=== PATIENT | female | born 1990 | race Caucasian/White ===

== ENCOUNTER → 2019-02-24 | Outpatient (CLI) | payer BC ==
[~2019-02-24] MED LIST: ACHYD1T PO; EPIN0.3P2 IM; IBP800T PO; METH4TAB PO; PREN-115 PO
--- NOTE | 2019-02-24 20:53 | Diagnostic Imaging Report ---
FOOT LEFT, THREE VIEWS INDICATION: Left foot pain after crush injury. COMPARISON: None available. TECHNIQUE: Three non-weightbearing views of foot were obtained. FINDINGS: Question nondisplaced fracture in the tuft of the first distal phalanx. However, this could represent prominent trabeculation if patient does not have pain in this region. Otherwise, there is no acute fracture. No radiopaque foreign body. IMPRESSION: 1. Potential nondisplaced fracture in the tuft of the great toe. However, if patient does not have focal tenderness in this region, this is likely due to prominent trabeculation. Dictated by: Dictated on workstation # [id number]
== END ==
LOC: RAD 20:12
PROVIDERS: ATTEND Nurse Practitioner Family
DX: S97.82XA Crushing injury of left foot, initial encounter (principal)
CPT/HCPCS: 73630

== ENCOUNTER → 2019-12-06 | Outpatient (CLI) | payer BC | LOC: LAB 10:55 | PROVIDERS: ATTEND Nurse Practitioner Family | DX: J02.9 Acute pharyngitis, unspecified (principal); R51 Headache; Z20.828 Contact with and (suspected) exposure to other viral communicable diseases | CPT/HCPCS: 87635 ==

== ENCOUNTER 2020-04-26 10:30 | Emergency (ER) | payer BC ==
[~2020-04-26] VITALS: Ht 152.4 cm; Wt 52.2 kg
--- NOTE | 2020-04-26 10:50 | ED Fall/Injury ---
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 She says she struck her buttock on the floor and the back of her left occipital scalp against a stool. She denies loss of consciousness and is not on any medicines or blood thinners. She does however admit to intermediate paresthesias over her entire body and she had difficulty speaking. Within a few seconds the paresthesias went away and then she was able to speak with a severe stutter. By the time she arrived in the ER her speech deficit is gone. She has no loss of memory. No nausea vomiting. She says the pain in the back of her head and upper neck is approximately 7 out of 10 but she does not want anything for it. She takes multivitamins but does not require any other medicines or have any significant medical history. LMP starting today Allergies and Home Medications Allergies Coded Allergies: No Known Drug Allergies (Verified , 02/21/08) Home Medications Hydrocodone Bit/Acetaminophen 1 Tab Tablet, 1-2 TAB PO Q3H, (Reported) Ibuprofen 800 Mg Tab, 800 MG PO Q6H PRN, (Reported) Vit #108/Iron/Fa 1 Each Tablet, 1 EACH PO DAILY, (Reported) Patient Home Medication List Home Medication List Reviewed: Yes Review of Systems Review of Systems Constitutional: No chills, No diaphoresis Eyes: Denies Blindness, Denies Drainage Ears, Nose, Mouth, Throat: denies ear pain, denies ear discharge Respiratory: No cough, No short of breath Cardiovascular: No Hx of Intervention, No palpitations Gastrointestinal: No abdominal pain, No nausea, No vomiting Genitourinary: No discharge, No dysuria Musculoskeletal: back pain; No joint pain; neck pain All Other Systems Reviewed Negative Unless Noted: Yes Past Qzgdcob-Qaaatt-Habral Hx Patient Social History Alcohol Use: Rarely Uses Recreational Drug Use: No Smoking Status: Never a Smoker Immunizations Up To Date Date of Influenza Vaccine: Apr 27, 2012 Past Medical History Reproductive Disorders: No Physical Exam Vital Signs Vital Signs - First Documented 04/26/20 10:34 Temp 36.5 Pulse 108 Resp 18 B/P (MAP) 124/92 (103) Pulse Ox 100 O2 Delivery Room Air Capillary Refill : Height, Weight, BMI Height: '" Weight: lbs. oz. kg; BMI Method: General Appearance: WD/WN, mild distress HEENT: PERRL/EOMI, normal ENT inspection, TMs normal, pharynx normal, other (negative for hemotympanum, raccoon eyes, Damian sign.) Neck: other (noted midline cervical tenderness but left lateral muscle spasms and tenderness radiating into her left trapezius. C-collar in place.) Cardiovascular: normal peripheral pulses, regular rate, rhythm Respiratory: lungs clear, normal breath sounds, no respiratory distress, no accessory muscle use Peripheral Pulses: 2+ Dorsalis Pedis (R), 2+ Left Dors-Pedis (L), 2+ Radial Pulses (R), 2+ Radial Pulses (L) Gastrointestinal: non tender, soft Back: normal inspection, muscle spasm, vertebral tenderness (mild, upper lumbar lower rash sick midline tenderness with bilateral muscle spasms) Extremities: normal range of motion, non-tender, normal inspection, normal capillary refill Neurologic/Psychiatric: no motor/sensory deficits, alert, normal mood/affect, oriented x 3 Skin: normal color, warm/dry Progress/Results/Core Measures Results/Orders My Orders Orders - [facility] Ct Head/Cervical Spine Wo (04/26/20 10:43) Thoracic Spine, 2 Views Only (04/26/20 10:43) Lumbar Spine - 2-3 Views (04/26/20 10:43) Vital Signs/I&O 04/26/20 10:34 Temp 36.5 Pulse 108 Resp 18 B/P (MAP) 124/92 (103) Pulse Ox 100 O2 Delivery Room Air Progress Progress Note : Time: 10:49 Progress Note Given her mechanism of injury or suspect a spinal cord contusion and concussion. Plan to get plain films to rule out vertebral fractures of her lumbar thoracic spine and a CT of her head and C-spine. She does not want anything for pain at this time. C-collar precautions are in place. Diagnostic Imaging Diagonstic Imaging: Xray Plain Films/CT/US/NM/MRI: other (thoracolumbar spine) Comments [facility] [employer] [facility] [place], [place] NAME: ARSENIO CAIN [facility] REC#: [id number] PT STATUS: REG ER : 1990 PHYSICIAN: [facility] MD ADMIT DATE: 04/26/20/ER Signed Date of Exam:04/26/20 LUMBAR SPINE - 2-3 VIEWS Indication: Fall and back pain AP and lateral views of the lumbar spine are obtained. FINDINGS: Examination of the lumbar spine was obtained. Lumbar spinal curvature and alignment are within normal limits. Vertebral body heights and disc spaces are maintained. No fracture or malalignment is seen. Intrauterine device is noted. IMPRESSION: No radiographic evidence of acute lumbar spinal abnormality. Dictated by: Dictated on workstation # [id number] Dict: 04/26/20 1123 Trans: 04/26/201123 [id number] Interpreted by: PRESLEY CIFUENTES MD Electronically signed by: PRESLEY CIFUENTES MD 04/26/20 1124 [facility], [place] NAME: JONE CAINNEY [facility] REC#: [id number] PT STATUS: REG ER : 1990 PHYSICIAN: [facility] MD ADMIT DATE: 04/26/20/ER Draft Date of Exam:04/26/20 THORACIC SPINE, 2 VIEWS ONLY EXAMINATION: Thoracic spine radiographs, 2 views. COMPARISON: None. HISTORY: 29-year-old female, fall. Mid back pain. FINDINGS: The alignment of the thoracic spine is unremarkable. There is no identified compression deformity or fracture of the thoracic spine. The disc heights are well preserved. IMPRESSION: Unremarkable radiographs of the thoracic spine. Dictated on workstation # [id number] Dict: 04/26/20 1122 Trans: 04/26/20 1124 [facility] [phone] Interpreted by: MARY CARMEN JARRETT MD Electronically signed by: Reviewed: Reviewed by Me Diagonstic Imaging: CT (without IV contrast) Plain Films/CT/US/NM/MRI: c-spine, head Comments [facility] [place] NAME: CHIQUI CAINTNEY [facility] REC#: [id number] PT STATUS: REG ER : 1990 PHYSICIAN: [facility] MD ADMIT DATE: 04/26/20/ER Signed Date of Exam:04/26/20 CT HEAD/CERVICAL SPINE WO PROCEDURE: CT head and CT cervical spine without contrast. TECHNIQUE: Multiple contiguous axial images were obtained through the brain and cervical spine without the use of intravenous contrast. Sagittal and coronal reformations through the cervical spine were then performed. Auto Exposure Controls were utilized during the CT exam to meet ALARA standards for radiation dose reduction. DATE: April 26, 2020. COMPARISON: None. INDICATION: 29-year-old female, fall. Hit head. Head and neck pain. FINDINGS: There is no identified skull fracture. The ventricles and cerebral spinal fluid spaces are of normal size and configuration for the patient's age. There is no mass effect or midline shift. There is no acute intracranial hemorrhage. There is no abnormal extra-axial fluid collection. The visualized portions of the paranasal sinuses, mastoid air cells and middle ears are well aerated. There is no identified facet joint subluxation or dislocation. There is no asymmetric widening of the cervical disc spaces. There is no prominent prevertebral soft tissue swelling. There is no identified acute fracture of the cervical spine. The cervical disc heights are well preserved. CT is limited for assessment of disc pathology as well as additional nonbony causes of pathology in the spinal canal. The visualized portions of the lung apices are clear. IMPRESSION: 1. No identified acute intracranial abnormality. 2. No identified acute abnormality of the cervical spine. Dictated by: Dictated on workstation # [id number] Dict: 04/26/20 1116 Trans: 04/26/20 1130 [facility] [phone] Interpreted by: MARY CARMEN JARRETT MD Electronically signed by: MARY CARMEN JARRETT MD 04/26/20 1130 Reviewed: Reviewed by Me Departure Impression Primary Impression: Fall Qualified Codes: W19.XXXA - Unspecified fall, initial encounter Additional Impressions: Low back pain Qualified Codes: M54.5 - Low back pain Neck pain on left side Hematoma Concussion Qualified Codes: S06.0X0A - Concussion without loss of consciousness, initial encounter Disposition: 01 HOME, SELF-CARE Condition: Stable Departure-Patient Inst. Decision time for Depature: 11:36 Referrals: NO,LOCAL PHYSICIAN (PCP/Family) Primary Care Physician Patient Instructions: Neck Pain Exercises, Back Flexion Stretching Exercises, Concussion, Adult (DC) Add. Discharge Instructions: Tylenol and ibuprofen for pain. Ice for the first couple days then heating pads. Follow-up with your doctor if you're having new, worsening or persistent symptoms. All discharge instructions reviewed with patient and/or family. Voiced understanding. Work/School Note: Work Release Form Date Seen in the Emergency Department: Apr 26, 2020 Return to Work: Apr 27, 2020 Restrictions: No Restrictions [facility] Apr 26, 2020 10:50
--- NOTE | 2020-04-26 11:22 | Diagnostic Imaging Report ---
PROCEDURE: CT head and CT cervical spine without contrast. TECHNIQUE: Multiple contiguous axial images were obtained through the brain and cervical spine without the use of intravenous contrast. Sagittal and coronal reformations through the cervical spine were then performed. Auto Exposure Controls were utilized during the CT exam to meet ALARA standards for radiation dose reduction. DATE: April 26, 2020. COMPARISON: None. INDICATION: 29-year-old female, fall. Hit head. Head and neck pain. FINDINGS: There is no identified skull fracture. The ventricles and cerebral spinal fluid spaces are of normal size and configuration for the patient's age. There is no mass effect or midline shift. There is no acute intracranial hemorrhage. There is no abnormal extra-axial fluid collection. The visualized portions of the paranasal sinuses, mastoid air cells and middle ears are well aerated. There is no identified facet joint subluxation or dislocation. There is no asymmetric widening of the cervical disc spaces. There is no prominent prevertebral soft tissue swelling. There is no identified acute fracture of the cervical spine. The cervical disc heights are well preserved. CT is limited for assessment of disc pathology as well as additional nonbony causes of pathology in the spinal canal. The visualized portions of the lung apices are clear. IMPRESSION: 1. No identified acute intracranial abnormality. 2. No identified acute abnormality of the cervical spine. Dictated by: Dictated on workstation # [id number]
--- NOTE | 2020-04-26 11:24 | Diagnostic Imaging Report ---
EXAMINATION: Thoracic spine radiographs, 2 views. COMPARISON: None. HISTORY: 29-year-old female, fall. Mid back pain. FINDINGS: The alignment of the thoracic spine is unremarkable. There is no identified compression deformity or fracture of the thoracic spine. The disc heights are well preserved. IMPRESSION: Unremarkable radiographs of the thoracic spine. Dictated by: Dictated on workstation # [id number]
--- NOTE | 2020-04-26 11:26 | Diagnostic Imaging Report ---
Indication: Fall and back pain AP and lateral views of the lumbar spine are obtained. FINDINGS: Examination of the lumbar spine was obtained. Lumbar spinal curvature and alignment are within normal limits. Vertebral body heights and disc spaces are maintained. No fracture or malalignment is seen. Intrauterine device is noted. IMPRESSION: No radiographic evidence of acute lumbar spinal abnormality. Dictated by: Dictated on workstation # [id number]
[2020-04-26 12:01] VITALS: BP 113/90
== END 2020-04-26 12:01 | disposition home or self-care (01) ==
LOC: EDUNIT# 10:30 → ER 10:32
DX: S06.0X0A Concussion without loss of consciousness, initial encounter (principal); M54.2 Cervicalgia; M54.5 Low back pain; Z20.828 Contact with and (suspected) exposure to other viral communicable diseases; W22.8XXA Striking against or struck by other objects, initial encounter
CPT/HCPCS: 70450; 72070; 72100; 72125

== ENCOUNTER → 2020-11-11 | Outpatient (CLI) | payer BC | LOC: LAB 16:36 | PROVIDERS: ATTEND Emergency Medicine | DX: R05 Cough (principal); R09.81 Nasal congestion; Z20.822 Contact with and (suspected) exposure to COVID-19 | CPT/HCPCS: 87636 ==

== ENCOUNTER → 2022-03-20 | Outpatient (CLI) | payer BC, OTHER ==
--- NOTE | 2022-03-20 17:59 | Diagnostic Imaging Report ---
INDICATION: Supervision of normal . Anatomy scan. TECHNIQUE: Multiple real-time grayscale images were obtained over the gravid uterus. COMPARISON: None. FINDINGS: A single live intrauterine gestation is visualized in cephalic presentation. heart tones measure 142 bpm. The placenta is posterior and not low lying. The ADELSO is normal and measures 13.8 cm. The cervix is closed and measures 4.1 cm in length. Kidneys, bladder, stomach, brain, four-chamber heart, three-vessel cord, spine, and cord insertion have a normal appearance. Biometrical measurements are as follows: Biparietal 4.56 cm, age 19 weeks 6 days. Head circumference 17.68 cm, age 20 weeks 2 days. Abdominal circumference 14.97 cm, age 20 weeks 2 days. Femur length 3.11 cm, age 19 weeks 5 days. Sonographic estimate age: 20 weeks 1 days. Sonographic estimated date of delivery: 08/06/2022. Estimated Weight: 324 gm (+/- 47 gm). LMP percentile: 69%. heart rate: 142 beats per minute. number: 1 of 1. Views of the adnexa demonstrate no evidence of mass or free fluid. IMPRESSION: 1. Single live intrauterine gestation measuring 20 weeks 1 day with an estimated due date of 08/06/2022. These are within range of the clinical dates. 2. Unremarkable anatomy scan. No abnormality. Dictated by: Dictated on workstation # [id number]
== END ==
LOC: RAD 12:00
PROVIDERS: ATTEND Nurse Practitioner Women's Health
DX: Z34.02 Encounter for supervision of normal first pregnancy, second trimester (principal); Z3A.20 20 weeks gestation of pregnancy
CPT/HCPCS: 76805

== ENCOUNTER 2022-07-07 18:14 | Outpatient (CLI) | payer BC ==
[~2022-07-07] VITALS: Ht 154.9 cm; Wt 64.2 kg
[2022-07-07] MEDS ORDERED: GLYB1.253 PO (18:22)
[2022-07-07] MEDS ORDERED: MAGN200T PO (18:25)
[2022-07-07 18:28] VITALS: BP 134/76
[2022-07-07] MEDS ORDERED: NS IV 500 ML 500 ML IV ONE ×2 (18:45→19:00)
[2022-07-07] MEDS ORDERED: NS IV 500 ML 500 ML ONE (18:49)
[2022-07-07 19:27] LABS: BILIRUBIN,URINE NEGATIVE (NEGATIVE); CLARITY,URINE CLEAR; COLOR,URINE YELLOW; GLUCOSE, URINE (UA) NEGATIVE (NEGATIVE); KETONES,URINE 1+ (NEGATIVE); LEUKOCYTE ESTERASE ,URINE NEGATIVE (NEGATIVE); NITRITE,URINE NEGATIVE (NEGATIVE); PH,URINE 5.5 (5-9); PROTEIN,URINE NEGATIVE (NEGATIVE)
[2022-07-07 19:41] LABS: BACTERIA,URINE TRACE /HPF
[2022-07-07] MEDS ORDERED: TERBUTALINE INJ 1 MG/ML (BRETHINE) AMP SC ONE (20:00)
[2022-07-07] MEDS ORDERED: NS IV 1000 ML 1,000 ML ONE (20:09)
[2022-07-07] MEDS ORDERED: BETAMETHASONE ACE/NA PHOS 6 MG/ML (CELESTONE SOLUSPAN) ONE ×2 (20:09→20:11)
[2022-07-07] MEDS ORDERED: TERBUTALINE INJ 1 MG/ML (BRETHINE) AMP ONE (20:09)
[2022-07-07] MEDS: NS IV 1000 ML 1,000 ML IV SCH (20:33)
[2022-07-07 20:42] VITALS: BP 112/58
[2022-07-07 23:06] VITALS: BP 95/55
[2022-07-08 02:10] VITALS: BP 96/55
[2022-07-08] MEDS: NS IV 1000 ML 1,000 ML IV SCH (04:35)
[2022-07-08 07:35] VITALS: BP 108/68
[2022-07-08 08:30] VITALS: BP 104/57
[2022-07-08] MEDS ORDERED: BETAMETHASONE ACE/NA PHOS 6 MG/ML (CELESTONE SOLUSPAN) IM SCH (09:00)
== END 2022-07-08 09:00 ==
LOC: WSo 18:14 → LDRP 18:14 → WSo 07-08 09:00
PROVIDERS: ATTEND Obstetrics & Gynecology
DX: Z34.90 Encounter for supervision of normal pregnancy, unspecified, unspecified trimester (principal); Z3A.00 Weeks of gestation of pregnancy not specified
CPT/HCPCS: 81000

== ENCOUNTER 2022-07-08 20:31 | Outpatient (CLI) | payer BC ==
[~2022-07-08 20:31] MED LIST changes: +GLYB1.253 PO; +MAGN200T PO
[2022-07-08] MEDS ORDERED: BETAMETHASONE ACE/NA PHOS 6 MG/ML (CELESTONE SOLUSPAN) IM SCH (20:40)
[2022-07-08] MEDS ORDERED: BETAMETHASONE ACE/NA PHOS 6 MG/ML (CELESTONE SOLUSPAN) ONE (20:42)
[2022-07-08] MEDS ORDERED: BETAMETHASONE ACE/NA PHOS 6 MG/ML (CELESTONE SOLUSPAN) IM ONE (21:45)
== END 2022-07-08 21:05 | disposition home or self-care (01) ==
LOC: WSo 20:31
PROVIDERS: ATTEND Obstetrics & Gynecology
DX: Z29.8 Encounter for other specified prophylactic measures (principal)
CPT/HCPCS: 96361; 96372

== ENCOUNTER 2022-07-23 06:27 | Inpatient (IN) | payer BC ==
[~2022-07-23] VITALS: Ht 152.4 cm; Wt 67.4 kg
[2022-07-23] VITALS (69 sets, daily range): BP systolic 85–160; BP diastolic 50–80
[2022-07-23] MEDS ORDERED: D5 LR IV SOLUTION 1,000 ML IV ONE (06:53)
[2022-07-23] MEDS ORDERED: LIDOCAINE/EPI 2% 1:200,00 (XYLOCAINE) 10 ML VIAL INJ PRN (07:00)
[2022-07-23] MEDS: D5 LR IV SOLUTION 1,000 ML IV SCH ×2 (07:16→14:40)
[2022-07-23 07:48] LABS: EOSINOPHILS % (AUTO) 2 % (0-10); HEMOGLOBIN 12.2 g/dL (11.5-16.0); MEAN CORPUSCULAR VOLUME 90 fL (80-99); MEAN PLATELET VOLUME 10.3 fL (9.0-12.2)
[2022-07-23 07:49] LABS: BILIRUBIN,URINE NEGATIVE (NEGATIVE); CLARITY,URINE CLEAR; COLOR,URINE YELLOW; GLUCOSE, URINE (UA) NEGATIVE (NEGATIVE); KETONES,URINE NEGATIVE (NEGATIVE); LEUKOCYTE ESTERASE ,URINE TRACE (NEGATIVE); NITRITE,URINE NEGATIVE (NEGATIVE); PROTEIN,URINE NEGATIVE (NEGATIVE)
[2022-07-23 07:50] LABS: BASOPHILS % (AUTO) 0 % (0-10); EOSINOPHILS # (AUTO) 0.2 10^3/uL (0.0-0.3); HEMATOCRIT 35 % (35-52); LYMPHOCYTES # (AUTO) 1.5 10^3/uL (1.0-4.0); LYMPHOCYTES % (AUTO) 19 % (12-44); MEAN CORPUSCULAR HEMOGLOBIN 32 pg (25-34); MEAN CORPUSCULAR HGB CONC 35 g/dL (32-36); MONOCYTES # (AUTO) 0.5 10^3/uL (0.0-1.0); MONOCYTES % (AUTO) 6 % (0-12); NEUTROPHILS # (AUTO) 5.7 10^3/uL (1.8-7.8); NEUTROPHILS % (AUTO) 72 % (42-75); PLATELET COUNT 98 10^3/uL (130-400); WHITE BLOOD COUNT 7.9 10^3/uL (4.3-11.0)
[2022-07-23 07:57] LABS: BACTERIA,URINE NEGATIVE /HPF; SQUAMOUS EPITHELIAL CELL,UR 0-2 /HPF
[2022-07-23] MEDS ORDERED: LACTATED RINGERS 1,000 ML IV ONE (07:57)
[2022-07-23] MEDS ORDERED: fentaNYL 2 mcg/ml BUPIVA 0.125 100 ML ONE (07:57)
--- NOTE | 2022-07-23 08:39 | History & Physical-OB ---
OB - Chief Complaint & HPI Date/Time Date of Admission: Date of Admission: Jul 23, 2022 at 06:27 Date seen by a Provider: Jul 23, 2022 Time Seen by a Provider: 07:55 Chief Complaint/History OB-Reason for Admission/Chief: Induction of Labor Hx : 3 Hx Para: 2 Expected Date of Delivery: Aug 10, 2022 Gestational Age in Weeks: 37 Gestational Age in Days: 3 Indication for induction: medical complication Other reason for admission: GDMA2 Admission Nurse Assessment Rev: Yes History of Labs B pos Antibody neg RI RPR NR HBsAg NR HIV NR GC neg GBS neg Allergies and Home Medications Allergies Coded Allergies: Sulfa (Sulfonamide Antibiotics) (Verified Allergy, Unknown, Rash, 07/07/22) Patient Home Medication List Home Medication List Reviewed: Yes Glyburide (Glyburide) 1.25 Mg Tablet, 1.25 MG PO DAILY, (Reported) Entered as Reported by: LORENZO BANKS on 07/07/221821 Last Action: Reviewed Magnesium (Magnesium) 200 Mg Tablet, 400 MG PO DAILY, (Reported) Entered as Reported by: LORENZO BANKS on 07/07/221824 Last Action: Reviewed Vit #108/Iron/Fa ( One Tablet) 1 Each Tablet, 1 EACH PO DAILY, (Reported) Entered as Reported by: LATOYA RIVAS on 04/25/122253 Last Action: Reviewed OB - History Hx of Present Care: Yes Ultrasounds: Normal mid trimester US Obstetrical Complications: Gestational Diabetes Medical Complications: None Delivery History Hx Dystocia: No Hx Large For Gestational Age I: No Hx Small for Gestational Age I: No Hx Section: No Hx Blood Disorders: No Patient Past Medical History nc Immunizations Influenza Vaccine Up-to-Date: Yes; Up-to-Date Tetanus Booster (TDap): Less than 5yrs OB - Admission Exam Physical Exam Vitals: Vital Signs 07/23/22 07:31 Temp 35.9 Pulse 83 Resp 18 Pulse Ox 98 O2 Delivery Room Air HEENT: NCAT Heart: Rhythm Normal Lungs: Clear Abdomen: Gravid Extremities: Normal Reflexes: Normal Cervical Dilatation: 2cm Effacement: 75% Station: -1 Membranes: Intact Heart Rate: 130's Accelerations: Accelerations Present Decelerations: No Decelerations Short Term Variability: Present Long-Term Variability: Average (6-25) Contractions on Admission: 6-10 Minutes Apart Intensity: Mild Labs Laboratory Tests Test 07/23/22 07:30 07/23/22 07:37 Range/Units Urine Color YELLOW Urine Clarity CLEAR Urine pH 6.0 5-9 Urine Specific [place] 1.010 L 1.016-1.022 Urine Protein NEGATIVE NEGATIVE Urine Glucose (UA) NEGATIVE NEGATIVE Urine Ketones NEGATIVE NEGATIVE Urine Nitrite NEGATIVE NEGATIVE Urine Bilirubin NEGATIVE NEGATIVE Urine Urobilinogen 0.2 < = 1.0 MG/DL Urine Leukocyte Esterase TRACE H NEGATIVE Urine RBC (Auto) TRACE-I H NEGATIVE Urine RBC NONE /HPF Urine WBC NONE /HPF Urine Squamous Epithelial Cells 0-2 /HPF Urine Crystals NONE /LPF Urine Bacteria NEGATIVE /HPF Urine Casts NONE /LPF Urine Mucus NEGATIVE /LPF Urine Culture Indicated NO White Blood Count 7.9 4.3-11.0 10^3/uL Red Blood Count 3.86 3.80-5.11 10^6/uL Hemoglobin 12.2 11.5-16.0 g/dL Hematocrit 35 35-52 % Mean Corpuscular Volume 90 80-99 fL Mean Corpuscular Hemoglobin 32 25-34 pg Mean Corpuscular Hemoglobin Concent 35 32-36 g/dL Red Cell Distribution Width 13.2 10.0-14.5 % Platelet Count 98 L 130-400 10^3/uL Mean Platelet Volume 10.3 9.0-12.2 fL Immature Granulocyte % (Auto) 1 % Neutrophils (%) (Auto) 72 42-75 % Lymphocytes (%) (Auto) 19 12-44 % Monocytes (%) (Auto) 6 0-12 % Eosinophils (%) (Auto) 2 0-10 % Basophils (%) (Auto) 0 0-10 % Neutrophils # (Auto) 5.7 1.8-7.8 10^3/uL Lymphocytes # (Auto) 1.5 1.0-4.0 10^3/uL Monocytes # (Auto) 0.5 0.0-1.0 10^3/uL Eosinophils # (Auto) 0.2 0.0-0.3 10^3/uL Basophils # (Auto) 0.0 0.0-0.1 10^3/uL Immature Granulocyte # (Auto) 0.1 0.0-0.1 10^3/uL Percent Immature Platelet Fraction 3.6 0.0-7.6 % OB - Assessment/Plan/Diagnosis Assessment Assessment: induction of labor Admission Dx 32 y o @ 37.3 GDMA2- on glyburide GBS neg Admission Status: Inpatient Order (span 2 midnights) Reason for Inpatient Admission: IOL at 37 weeks Plan Plan: Induction Induction Method: DESTINY SELLERS DO Jul 23, 2022 08:39
[2022-07-23] MEDS: fentaNYL 2 mcg/ml BUPIVA 0.125 100 ML EPI SCH ×2 (08:49→16:56)
[2022-07-23] MEDS ORDERED: LACTATED RINGERS 1,000 ML IV SCH (09:00)
[2022-07-23] MEDS ORDERED: METOCLOPRAMIDE INJ 10 MG/2 ML (REGLAN) IV PRN (09:00)
[2022-07-23] MEDS ORDERED: ONDANSETRON 4 MG/2 ML (SDV) Z0FRAN IV PRN (09:00)
[2022-07-23] MEDS ORDERED: diphenhydrAMINE 50 MG/ML INJ (BENADRYL) IV PRN (09:00)
[2022-07-23] MEDS ORDERED: NALOXONE 0.4 MG/ML 1 ML (NARCAN) VIAL IV PRN ×2 (09:00)
[2022-07-23] MEDS ORDERED: OXYTOCIN PRE-MIX DRIP 500 ML IV SCH (09:15)
[2022-07-23] MEDS ORDERED: OXYTOCIN PRE-MIX DRIP 500 ML IV ONE (09:38)
[2022-07-23] MEDS ORDERED: CATHETER FLUSH 10 ML SYR IV SCH (14:00)
[2022-07-23] MEDS ORDERED: BUPIVACAINE 0.25% 30 ML (SENSORCAINE) VIAL ONE (23:49)
[2022-07-24] VITALS (7 sets, daily range): BP systolic 103–114; BP diastolic 64–70
[2022-07-24] MEDS ORDERED: OXYTOCIN (PITOCIN) 10 UNIT/ML VIAL ONE ×2 (00:09→00:12)
--- NOTE | 2022-07-24 00:21 | OB Labor & Delivery Record ---
L&D History Date of Service Date of Service: Jul 24, 2022 History Expected Date of Delivery: Aug 10, 2022 Gestational Age in Weeks: 37 Hx : 3 Hx Para: 2 Complications Events: Gestational Diabetes Operative Indications (Cesarea: N/A-Vaginal Delivery Intrapartal Events: None L&D Stage1 Stage One Onset of Labor - Date: Jul 24, 2022 Monitors and Tracing Monitor Mode: External Heart Rate: 110 Monitor Accelerations: Uniform Monitor Decelerations: Variable Station: -1 Residential Variability: Average (6-10) Short Term Variability: Present Presentation: Vertex Vital Signs VS - Last 72 Hours, by Label 07/23/22 07/23/22 07/23/22 07/23/22 07:31 08:33 08:36 08:38 Temp 35.9 Pulse 83 89 81 92 Resp 18 18 18 18 B/P (MAP) 116/73 (87) 117/79 (92) 111/79 (90) Pulse Ox 98 100 99 O2 Delivery Room Air Room Air Room Air Room Air 07/23/22 07/23/22 07/23/22 07/23/22 08:41 08:44 08:47 08:50 Pulse 79 86 92 92 Resp 18 18 18 18 B/P (MAP) 104/68 (80) 102/67 (79) 109/70 (83) 99/59 (72) Pulse Ox 99 99 98 99 O2 Delivery Room Air Room Air Room Air Room Air 07/23/22 07/23/22 07/23/22 07/23/22 08:52 08:56 09:00 09:06 Pulse 76 82 83 95 Resp 18 18 18 18 B/P (MAP) 85/53 (64) 117/56 (76) 106/55 (72) 106/57 (73) Pulse Ox 99 98 98 99 O2 Delivery Room Air Room Air Room Air Room Air 07/23/22 07/23/22 07/23/22 07/23/22 09:10 09:28 09:41 09:56 Pulse 102 90 82 73 Resp 18 18 18 18 B/P (MAP) 105/61 (76) 107/70 (82) 103/69 (80) 87/53 (64) Pulse Ox 100 99 100 100 O2 Delivery Room Air Room Air Room Air Room Air 2/07/23/22 07/23/22 07/23/22 10:03 10:10 10:27 10:40 Pulse 79 75 71 73 Resp 18 18 18 18 B/P (MAP) 85/52 (63) 88/55 (66) 89/50 (63) 90/53 (65) Pulse Ox 100 100 100 100 O2 Delivery Room Air Room Air Room Air Room Air 07/23/22 07/23/22 07/23/22 07/23/22 10:58 11:11 11:27 11:40 Temp 35.0 Pulse 80 73 68 75 Resp 18 18 18 18 B/P (MAP) 112/70 (84) 102/73 (83) 101/66 (78) 98/66 (77) Pulse Ox 100 100 100 100 O2 Delivery Room Air Room Air Room Air Room Air 07/23/22 07/23/22 07/23/22 07/23/22 12:01 12:05 12:11 12:28 Temp 35.5 Pulse 78 69 79 Resp 18 18 18 B/P (MAP) 101/63 (76) 101/66 (78) 108/67 (81) Pulse Ox 100 100 100 O2 Delivery Room Air Room Air Room Air 07/23/22 07/23/22 07/23/22 07/23/22 12:41 12:56 12:59 13:12 Temp 35.7 Pulse 73 73 69 Resp 18 18 18 B/P (MAP) 104/73 (83) 101/69 (80) 100/68 (79) Pulse Ox 100 100 100 O2 Delivery Room Air Room Air Room Air 07/23/22 07/23/22 07/23/22 07/23/22 13:26 13:40 13:46 13:56 Temp 35.2 Pulse 65 66 85 Resp 18 18 18 B/P (MAP) 109/72 (84) 101/69 (80) 113/70 (84) Pulse Ox 100 100 100 O2 Delivery Room Air Room Air Room Air 07/23/22 07/23/22 07/23/22 07/23/22 14:10 14:27 14:46 14:55 Temp 35.5 Pulse 70 69 71 Resp 18 18 18 B/P (MAP) 107/72 (84) 109/72 (84) 94/53 (67) Pulse Ox 100 100 100 O2 Delivery Room Air Room Air Room Air 07/23/22 07/23/22 07/23/22 07/23/22 15:11 15:26 15:41 15:58 Pulse 78 76 80 71 Resp 18 18 18 18 B/P (MAP) 97/58 (71) 100/55 (70) 108/57 (74) 110/68 (82) Pulse Ox 100 100 100 100 O2 Delivery Room Air Room Air Room Air Room Air 07/23/22 07/23/22 07/23/22 07/23/22 16:26 16:41 16:56 17:11 Pulse 78 71 69 72 Resp 18 18 18 18 B/P (MAP) 116/67 (83) 109/67 (81) 105/74 (84) 113/73 (86) Pulse Ox 100 100 100 100 O2 Delivery Room Air Room Air Room Air Room Air 07/23/22 07/23/22 07/23/22 07/23/22 17:25 17:43 17:56 18:01 Temp 36.7 Pulse 71 73 81 Resp 18 18 18 B/P (MAP) 109/71 (84) 113/61 (78) 114/72 (86) Pulse Ox 100 100 100 O2 Delivery Room Air Room Air Room Air 07/23/22 07/23/22 07/23/22 07/23/22 18:12 18:26 18:42 18:46 Temp 36.7 Pulse 74 74 72 Resp 18 18 18 B/P (MAP) 109/73 (85) 110/76 (87) 118/80 (93) Pulse Ox 100 100 100 O2 Delivery Room Air Room Air Room Air 07/23/22 18:55 Pulse 76 Resp 18 B/P (MAP) 107/70 (82) Pulse Ox 100 O2 Delivery Room Air Rupture of Membranes Spontaneous Ruture of Membrane: No Amniotic Membrane Rupture Time: 0749 Amniotic Membrane Fluid Desc.: Clear Vaginal Bleeding Description: Normal Show Induction/Anesthesia Epidural Cath Placement - Time: 0839 Progress/Notes Patient admitted for IOL due to GDMA2. AROM performed this am, followed by an epidural and pitocin augmentation. Pitocin continued throughout the day to max dose of 14 mu. She progressed to complete and +2 station and began to push. L&D Stage2 Stage Two Stage II Date: Jul 24, 2022 Monitors and Tracing Monitor Mode: External Heart Rate: 110 Monitor Accelerations: Uniform Monitor Decelerations: Variable Residential Variability: Average (6-10) Short Term Variability: Present Position: Right Occiput Anterior Presentation: Vertex Cord Descript/Complications Cord Vessel Description: 3 Vessels Complications nuchal cord reduced x 1 Delivery Type Delivery Method: Spontaneous Vaginal Anterior Shoulder: Left Episiotomy/Perineal Laceration Laceraction(s)/Extensions: No Condition of Delivery 1 minute Comment: 8 5 minute Comment: 9 Notes Live male infant weight pending Condition of Infant Condition of : Living Exam: No Observed Abnormalities Resuscitation Resuscitation: N/A - Spontaneous Resp L&D Stage3 Stage Three Stage III Date: Jul 24, 2022 Pictocin Pitocin Administration mu/min: 14 Pitocin ml/hr: 14 Pitocin Administration Comment: IV lost, 30 mu IM pitocin administered after delivery of placenta Placenta Delivery Placenta Delivery: Spontaneous Delivery Summary Summary Estimated blood loss (mL): 350 Attending at delivery: Nadja De La O DO Condition of Delivery Examined: Cervix Examined, Uterus Explored Post Hemorrhage: No Condition of Mother stable Condition of Infant (s) stable NADJA DE LA O DO Jul 24, 2022 00:21
--- NOTE | 2022-07-24 00:22 | Discharge Inst-Women's Service ---
Discharge Inst-Women's Serv Depart Medication/Instructions New, Converted or Re-Newed RX: Transmitted to Pharmacy Final Diagnosis PPD 1 NVD Problems Reviewed?: Yes Consults/Follow Up Additional Follow Up: Yes Orders/Referrals Dr. De La O in 6 weeks Activity Activity: Activity as Tolerated Driving Instructions: No Driving for 1 Week NO SMOKING: NO SMOKING Nothing Inside Vagina: No Douching, No [place], No Tampons Diet Discharge Diet: No Restrictions Symptoms to Report to : Bleeding Excessive, Pain Increased, Fever Over 101 Degrees F, Vaginal Bleeding Increase, Questions/Concerns For Any Problems or Questions: Contact Your Physician DESTINY DE LA O DO Jul 24, 2022 00:22
[2022-07-24] MEDS ORDERED: BENZ78AE5 TP (00:23)
[2022-07-24] MEDS ORDERED: ACHD5005 PO (00:23)
[2022-07-24] MEDS ORDERED: FERR325T24 PO (00:23)
[2022-07-24] MEDS ORDERED: IBUP-844 PO (00:23)
[2022-07-24] MEDS ORDERED: DOCU100C37 PO (00:23)
[2022-07-24] MEDS ORDERED: BENZOCAINE/MENTHOL (DERMOPLAST) 56 ML CAN TP PRN (00:30)
[2022-07-24] MEDS ORDERED: MEASLES,MUMPS,RUBELLA 1 EA INJ SQ ONE (00:30)
[2022-07-24] MEDS ORDERED: DIBUCAINE 1% OINTMENT 28 GM TUBE TOP PRN (00:30)
[2022-07-24] MEDS ORDERED: NALOXONE 0.4 MG/ML 1 ML (NARCAN) VIAL IV PRN (00:30)
[2022-07-24] MEDS ORDERED: HYDROcodone/APAP 5 MG/325 MG (LORTAB) TAB PO PRN (00:30)
[2022-07-24] MEDS ORDERED: OXYTOCIN PRE-MIX DRIP 500 ML IV SCH (00:30)
[2022-07-24] MEDS ORDERED: WITCH HAZEL(TUCKS) 40 EA JAR TOP PRN (00:30)
[2022-07-24] MEDS ORDERED: TETANUS,DIPTH,PERTUSS P/F (BOOSTRIX) 0.5 ML VIAL IM ONE (00:30)
[2022-07-24] MEDS: IBUPROFEN 600 MG (MOTRIN) TAB PO SCH ×4 (01:43→21:18)
[2022-07-24] MEDS: PRENATAL VITAMIN 1 EA TAB PO SCH (08:54)
[2022-07-24] MEDS: FERROUS SULF 325 MG (IRON) TAB PO SCH (08:54)
[2022-07-24] MEDS: DOCUSATE SODIUM 100 MG (COLACE) CAP PO SCH ×2 (08:55→21:18)
--- NOTE | 2022-07-24 14:26 | Anesthesia-Regional Post-Op ---
Regional Patient Condition Mental Status: Alert, Oriented x3 Circulation: Same as Pre-Op Headache: Absent Sensation: Decreased Motor Block: Absent Post Op Complications Complications None Follow Up Care/Instructions Patient Instructions None needed. Anesthesia/Patient Condition Patient is doing well. She does have some residual decreased sensation in her right hip and minimal low back pain. Her low back/insertion site looked normal, with no redness/bruising present. She has stable vital signs, no apparent adverse anesthesia problems. No complications reported per nursing. EMANI RODRIGUEZ DO Jul 24, 2022 14:26
[2022-07-24] MEDS: CATHETER FLUSH 10 ML SYR IV SCH ×2 (22:00→22:59)
[2022-07-25 04:00] VITALS: BP 107/71
[2022-07-25] MEDS: IBUPROFEN 600 MG (MOTRIN) TAB PO SCH ×2 (04:55→10:40)
[2022-07-25] MEDS: CATHETER FLUSH 10 ML SYR IV SCH (05:36)
[2022-07-25 06:48] LABS: BASOPHILS % (AUTO) 0 % (0-10); EOSINOPHILS % (AUTO) 3 % (0-10); HEMOGLOBIN 10.8 g/dL (11.5-16.0)
[2022-07-25 06:50] LABS: EOSINOPHILS # (AUTO) 0.3 10^3/uL (0.0-0.3); HEMATOCRIT 33 % (35-52); LYMPHOCYTES # (AUTO) 2.3 10^3/uL (1.0-4.0); LYMPHOCYTES % (AUTO) 25 % (12-44); MEAN CORPUSCULAR HEMOGLOBIN 31 pg (25-34); MEAN CORPUSCULAR HGB CONC 33 g/dL (32-36); MEAN CORPUSCULAR VOLUME 93 fL (80-99); MONOCYTES # (AUTO) 0.4 10^3/uL (0.0-1.0); MONOCYTES % (AUTO) 5 % (0-12); NEUTROPHILS # (AUTO) 6.1 10^3/uL (1.8-7.8); NEUTROPHILS % (AUTO) 67 % (42-75); PLATELET COUNT 82 10^3/uL (130-400); WHITE BLOOD COUNT 9.2 10^3/uL (4.3-11.0)
[2022-07-25 10:15] VITALS: BP 107/65
[2022-07-25] MEDS: DOCUSATE SODIUM 100 MG (COLACE) CAP PO SCH (10:18)
[2022-07-25] MEDS: FERROUS SULF 325 MG (IRON) TAB PO SCH (10:18)
[2022-07-25] MEDS: PRENATAL VITAMIN 1 EA TAB PO SCH (10:18)
--- NOTE | 2022-07-25 11:56 | Postpartum Progress Note ---
Note Note Day # 2 Subjective: Patient is without complaints. Ambulating, voiding. Tolerating a regular diet without nausea or vomiting. Normal lochia. Pain is well controlled with oral pain medications. She had questions about diabetes and following up with that which were discussed and answered. She is . Objective: Physical Exam: General - Alert and oriented, no apparent distress Abdomen - Soft, appropriately tender to palpation, non-distended, fundus firm at umbilicus Extremities - no edema, negative Kolton's bilaterally Assessment: 1. Status post spontaneous vaginal delivery day #1 2. Acute blood loss anemia 3. Recovering well, hemodynamically stable 4. Thrombocytopenia Plan: 1. Discharge home 2. Routine care. 3. Iron with vitamin C daily 4. Follow-up in the clinic 5. Monitor for easy bruising, bleeding, etc. Vitals - Labs Vital Signs - I&O Vital Signs Date Time Temp Pulse Resp B/P (MAP) Pulse Ox O2 Delivery O2 Flow Rate FiO2 07/25/22 10:15 35.9 90 18 107/65 (79) 97 Room Air 07/25/22 04:00 36.4 75 18 107/71 (83) 99 Room Air 07/24/22 21:30 36.8 78 16 114/70 (85) 98 Room Air 07/24/22 17:30 36.7 85 18 112/67 (82) 97 Room Air 07/24/22 13:30 36.4 83 18 109/66 (80) 97 Room Air Labs Laboratory Tests 07/25/22 06:09: White Blood Count 9.2, Red Blood Count 3.49L, Hemoglobin 10.8L, Hematocrit 33L, Mean Corpuscular Volume 93, Mean Corpuscular Hemoglobin 31, Mean Corpuscular Hemoglobin Concent 33, Red Cell Distribution Width 13.3, Platelet Count 82L, Mean Platelet Volume 11.0, Immature Granulocyte % (Auto) 1, Neutrophils (%) (Auto) 67, Lymphocytes (%) (Auto) 25, Monocytes (%) (Auto) 5, Eosinophils (%) (Auto) 3, Basophils (%) (Auto) 0, Neutrophils # (Auto) 6.1, Lymphocytes # (Auto) 2.3, Monocytes # (Auto) 0.4, Eosinophils # (Auto) 0.3, Basophils # (Auto) 0.0, Immature Granulocyte # (Auto) 0.1, Percent Immature Platelet Fraction 4.4 SABRINA ESCAMILLA DO Jul 25, 2022 11:56
== END 2022-07-25 14:50 | disposition home or self-care (01) | DRG 806 ==
LOC: LDRP 06:27
PROVIDERS: ADMIT Obstetrics & Gynecology; ATTEND Obstetrics & Gynecology
PROC: 10907ZC Drainage of Amniotic Fluid, Therapeutic from Products of Conception, Via Natural or Artificial Opening (ICD-10-PCS; 2022-07-23)
PROC: 10E0XZZ Delivery of Products of Conception, External Approach (ICD-10-PCS; principal; 2022-07-24)
DX: O24.425 Gestational diabetes mellitus in childbirth, controlled by oral hypoglycemic drugs (principal); D62 Acute posthemorrhagic anemia; Z37.0 Single live birth; O99.12 Other diseases of the blood and blood-forming organs and certain disorders involving the immune mechanism complicating childbirth; Z3A.37 37 weeks gestation of pregnancy; D69.6 Thrombocytopenia, unspecified; Z79.84 Long term (current) use of oral hypoglycemic drugs; O90.81 Anemia of the puerperium; O69.81X0 Labor and delivery complicated by cord around neck, without compression, not applicable or unspecified
CPT/HCPCS: 36415; 81000; 82947; 85025; 86780; 86850; 86900; 86901